=== PATIENT | female | born 1995 | race Hispanic/Latino ===

== ENCOUNTER 2019-11-09 20:53 | Inpatient (IN) | payer MEDICAID, OTHER, SELFPAY ==
[2019-11-09 21:22] VITALS: BMI 32.1
[2019-11-09] MEDS ORDERED: Ondansetron PF 4 MG/2 ML Vial IVP PRN (21:27)
[2019-11-09] MEDS ORDERED: Ibuprofen 800 MG TAB PO PRN (21:27)
[2019-11-09] MEDS ORDERED: Lidocaine 1% (PF) 30 ML VIAL SC PRN (21:27)
[2019-11-09] MEDS ORDERED: hydrALAZINE 20 MG/ML VIAL SLOW IVP PRN (21:27)
[2019-11-09] MEDS ORDERED: Promethazine HCl 25 MG/ML VIAL IM PRN (21:27)
[2019-11-09] MEDS ORDERED: Acetaminophen 500 MG TAB PO PRN (21:27)
[2019-11-09] MEDS ORDERED: Lactated Ringer's 1,000 ML IV SCH (21:30)
--- NOTE | 2019-11-09 21:31 | PDOC.FPROB ---
FMR OB H&P: HPI - History of Present Illness Chief Complaint: Contractions Indentification: 24yo @ 39.3 by 14.4wk sono History of Present Illness: 24yo @ 39.3 by 14.4wk sono presents for contractions. Onset of contractions at approx 1700, about every 5min apart and consistent. Mild vaginal spotting and thinning of vaginal discharge. No sudden LOF. Endorses good movement. No cough/congestion/fever/chills/SOB/CP, no recent travel. Primary Care Physician: MURPHY Pereira FMR OB H&P: Current - Care : 2 Para: 1001 Gestational age: 39.3 Due date: 11/13/19 Dating Criteria: 14.4wk sono - OB Labs Blood type: O RH: positive Antibody Screen: negative HIV: negative RPR: negative HepBsAg: negative Rubella: immune 1 hour gtt: 87 GBS: negative FMR OB H&P: History - Past Medical History PMH: Denies - OB History OB History: Previous term , no complications per pt. - PR[employer] MA[employer]GER [employer] History PR[employer]GER [employer] History: None, no history of STDs reported. - Surgical History Sx History: none - Social History Social History: Denies tob, illicits, or etOH. - Family History Family History: No significant OB or pediatric illnesses reported. FMR OB H&P: Medications - Current Home Medications: Medication Instructions Recorded Confirmed Type Vit,Calc78/Iron/Folic 1 tablet PO DAILY 02/15/17 11/09/19 History [Prenatabs FA Tablet] Allergies/Adverse Reactions: Allergies Allergy/AdvReac Type Severity Reaction Status Date / Time No Known Allergies Allergy Verified 02/16/17 02:29 FMR OB H&P: ROS - Review of Systems General: denies: fever/chills, weight/appetite/sleep changes Eyes: denies: vision changes ENT: denies: nasal congestion, rhinorrhea, sore throat Cardiovascular: denies: chest pain Respiratory: denies: cough, congestion, shortness of breath Gastrointestinal: denies: abdominal pain, vomiting, diarrhea Genitourinary (Female): reports: vaginal discharge, vaginal bleeding (scant), contractions (q5min). denies: incontinence, dysuria, vaginal pain Musculoskeletal: denies: pain Neurologic: denies: numbness Integumentary: denies: rash FMR OB H&P: Vital Signs - Maternal Vital signs: Vital Signs - First Documented Temp Pulse Resp BP 98.7 F 90 18 120/81 11/09/19 21:18 11/09/19 21:18 11/09/19 21:18 11/09/19 21:18 - Heart Tones Baseline: 130 Variability: moderate Acceleration: present Deceleration: absent Category: category 1 [place] contractions every: 4-5 min, regular FMR OB H&P: Physical Exam - Physical Exam General: NAD, awake, alert and oriented HEENT: normocephalic and atraumatic, PERRLA, MMM, conjunctiva clear Neck: supple Heart: RRR, normal S1/S2, no murmurs/rubs/gallops, no edema General: CTAB, no respiratory distress, good air movement, no rales/rhonchi, no wheezing Abdomen: soft, gravid, non-tender, bowel sound present Musculoskeletal: FROM in all four extremities Neurological: no focal deficit Lymphatic: no unusual bruising or bleeding Psychiatric: intact recent and remote memory, good judgement and insight, normal mood and affect - Pelvic Exam SVE: 5/100/-1 Membranes: Intact Presentation: Cephalic FMR OB H&P: A/P - Problem List (1) Term Current Visit: Yes Status: Acute Code(s): Z34.90 - ENCNTR FOR SUPRVSN OF NORMAL , UNSP, UNSP TRIMESTER Disposition: 24yo @ 39.3 by 14.4wk sono presents for contractions #Term , latent labor - 24yo @ 39.3wk by 14.4wk sono - presents for regular ctx q5min - Cat 1 strip, baseline 130, accels, no deccels, contractions q4-5 regularly - Initial SVE 5/100/-1, cephalic and intact - GBS negative - Admit to L&D, cont to monitor, recheck in ~3hrs or sooner if needed, consider AROM if no significant change at next cervical check - does not desire epidural IVF: LR @125cc/hr Diet: Ice chips PCP: MURPHY Pereira Discussion: Date/Time: 11/09/192128 This H&P was discussed with Dr. Shelton and Dr. Adame who agree with the above documentation and plan.
[2019-11-09] MEDS: Butorphanol Tartrate 1 MG/ML VIAL SLOW IVP PRN ×2 (21:51→23:38)
[2019-11-09 21:56] LABS: Hemoglobin 13.6 g/dL (12.0-16.0); Mean Corpuscular HGB CONC 34.2 g/dL (32.0-36.0); Mean Corpuscular Hemoglobin 32.3 pg (27.0-31.0); Mean Corpuscular Volume 94.4 fL (78.0-98.0); Mean Platelet Volume 8.3 fL (7.4-10.4); Platelet Count 204 thou/uL (130-400); RBC Distribution Width 12.8 % (11.5-14.5); Red Blood Cell (RBC) Count 4.22 mill/uL (4.20-5.40); White Blood Cell (WBC) Count 8.6 thou/uL (4.8-10.8)
[2019-11-09] MEDS ORDERED: Calcium Carbonate 500 MG ChewTAB PO SCH (22:00)
[2019-11-09 22:33] LABS: Syphilis Antibody Nonreactive (Nonreactive); Syphilis Antibody Index 0.03 S/CO (<1.00 Non-Reactive)
[2019-11-09 22:34] LABS: HBSAg Index 0.18 S/CO (0-0.99); Hep B Surf Ag Non-Reactive S/CO (NonReactive)
--- NOTE | 2019-11-09 23:56 | PDOC.LDPN ---
Labor & Delivery Progress Note - Subjective Subjective: comfortable, painful contractions, no concerns - Objective Vital signs reviewed and normal: yes General: NAD, breathing through contractions Uterine fundus: non tender SVE: 6/100/-1 FHT: category 1 (accels, no deccels, baseline 130) [place] contractions every: q4min - Assessment (1) Term Code(s): Z34.90 - ENCNTR FOR SUPRVSN OF NORMAL , UNSP, UNSP TRIMESTER Current Visit: Yes Status: Acute Plan: continue plan of care -: 24yo @ 39.3 by 14.4wk sono admitted for contractions now in active labor #Term , active labor - 24yo @ 39.3wk by 14.4wk sono - Cat 1 strip, baseline 130, accels, no deccels, contractions q4min regularly - Initial SVE 5/100/-1, cephalic and intact - SVE @ 2330 6/100/-1 - GBS negative - does not desire epidural - cont current management, recheck in ~2hrs, consider AROM at that time IVF: LR @125cc/hr Diet: Ice chips PCP: MURPHY Pereira
[2019-11-10] MEDS: NS / Oxytocin 40 units/1000ml 1,000 ML IV PRN ×2 (01:51→02:22)
--- NOTE | 2019-11-10 02:22 | PDOC.OPDEL ---
OB Operative/Delivery Note Delivery Dr/Surgeon: Rosina/Deep Pre-Delivery Diagnosis: active labor, ruptured membrane Weeks gestation: 39 (39.4) Anesthesia: none - Findings A Sex: male - 1 min: 9 - 5 min: 9 - Additional Findings/Plan Placenta delivered: spontaneous Repaired Obstetrical Laceration: 1st degree (perineal/R-side wall hemostatic, not requiring repair) Estimated blood loss: 25 Compilations/Other Findings: Delivering Physician: Rosina Attending: Deep Procedure: Spontaneous Vaginal Delivery Anesthesia: None QBL: 25 ml Pre-op Diagnosis: 1. Term intrauterine in labor Post-op Diagnosis: 1. Term intrauterine , delivered Indications: A 24y/o female presents in active labor Delivery Note: This is 24yo F @ 39.4wks who delivered a viable M infant at 0131. Following an uneventful antepartum course and SROM at 0037, a vigorous male was delivered over an intact perineum in the occipitoanterior position. Anterior Shoulder and then remainder of the body delivered. Nuchal cord x2. The head was held down and mouth and nares were bulb suctioned. Cord clamped after delayed cord clamping and cut and cord blood collected. Placenta delivered intact in the Sales presentation with a 3 vessel cord noted. Fundal massage was performed and the fundus was firm. The cervix and vagina were inspected and a small 1st degree perineum/R side wall laceration noted that was hemostatic and not requiring repair. placed on mother for [id number] and then nursery for routine care. Apgars were 9/9 at 1 & 5 minutes, respectively. Patient tolerated delivery well and went to after routine recovery/care. Post delivery plan: routine recovery Addendum - Attending - Attending Attestation Date/Time: 11/10/19 [id number] I personally evaluated the patient and discussed the management with Dr. Lee I agree with the History, Examination, Assessment and Plan documented above with any addition or exceptions noted below. I was present for the second and third stages of labor supervising/teaching Dr Lee.
[2019-11-10] MEDS ORDERED: hydrALAZINE 20 MG/ML VIAL SLOW IVP PRN (03:13)
[2019-11-10] MEDS ORDERED: Milk Of Magnesia 30 ML UDCUP PO PRN (03:13)
[2019-11-10] MEDS ORDERED: Ondansetron PF 4 MG/2 ML Vial IVP PRN (03:13)
[2019-11-10] MEDS ORDERED: Preparation H Ointment 28 GM TUBE PR PRN (03:13)
[2019-11-10] MEDS ORDERED: Lanolin Ointment 7 GM TUBE TOP PRN (03:13)
[2019-11-10] MEDS ORDERED: Bisacodyl 10 MG SUPP PR PRN (03:13)
[2019-11-10] MEDS ORDERED: NS / Oxytocin 40 units/1000ml 1,000 ML IV SCH (03:13)
[2019-11-10] MEDS ORDERED: Benzocaine-Menthol 82.5 ML CAN TOP PRN (03:13)
[2019-11-10] MEDS ORDERED: Calcium Carbonate 500 MG ChewTAB PO PRN (04:26)
[2019-11-10] MEDS: Ibuprofen 800 MG TAB PO SCH ×3 (05:46→22:05)
[2019-11-10] MEDS: Prenatal Vitamin 1 TAB PO SCH (08:29)
[2019-11-10 08:52] LABS: Hemoglobin 12.6 g/dL (12.0-16.0); Mean Corpuscular HGB CONC 34.5 g/dL (32.0-36.0); Mean Corpuscular Hemoglobin 32.6 pg (27.0-31.0); Mean Corpuscular Volume 94.3 fL (78.0-98.0); Mean Platelet Volume 7.6 fL (7.4-10.4); Platelet Count 185 thou/uL (130-400); RBC Distribution Width 12.6 % (11.5-14.5); Red Blood Cell (RBC) Count 3.88 mill/uL (4.20-5.40); White Blood Cell (WBC) Count 12.4 thou/uL (4.8-10.8)
[2019-11-10] MEDS ORDERED: Adacel (T-DAP) 0.5 ML SYRINGE IM ONE (09:00)
[2019-11-10] MEDS: traMADol HCl 50 MG TAB PO PRN (17:28)
[2019-11-11] MEDS: Ibuprofen 800 MG TAB PO SCH ×2 (05:30→13:49)
--- NOTE | 2019-11-11 07:01 | PDOC.PP ---
Post Progress Note Post Day #: 1 PO intake tolerated: yes Flatus: no Ambulation: yes Vital Signs (12 hours) Temp Pulse Resp BP Pulse Ox 11/11/19 00:00 99.0 F 76 16 103/58 L 11/10/19 20:05 98.5 F 79 15 100/52 L 96 Weight Weight 77.111 kg - Physical Examination General: NAD Cardiovascular: no m/r/g, RRR Respiratory: clear to auscultation bilaterally Abdominal: + bowel sounds, lochia, appropriately TTP Extremities: negative homans (B) Skin: no rash Neurological: no gross focal deficits Psychiatric: A&Ox3, normal affect Result Diagrams: 11/10/19 08:44 Additional Labs: Post Labs Blood Type O POSITIVE 11/09/19 21:40 Hep Bs Antigen Non-Reactive S/CO (NonReactive) 11/09/19 21:40 (1) Term delivered Code(s): O80 - ENCOUNTER FOR FULL-TERM UNCOMPLICATED DELIVERY Status: Acute Comment: - with vacuum assist at 0616 02/16/17 2nd degree perineal lac secondary to episiotomy repaired. EBL 300. Is doing fine this morning. Denies any problems, is up and moving around. Says she is having some vaginal pain. Being controlled with medication. Breast feeding is going much better today. Ready to go home. - Assessment/Plan 24yo @ 39.3 by 14.4wk rachana admitted for contractions now in active labor 1. Term , active labor PPD#1 * QBL: 45 * 1st degree lac * Eating and ambulating well * Some abdominal cramping, will send with ibuprofen * No BM, will send stool softner * H&H: 12.6/36.6 IVF: LR @125cc/hr Diet: Ice chips PCP: MURPHY Pereira Dispo: Will d/c today.
[2019-11-11 08:38] VITALS: BP 101/55; TEMP 98.1
[2019-11-11] MEDS: Prenatal Vitamin 1 TAB PO SCH (09:17)
[2019-11-11] MEDS: traMADol HCl 50 MG TAB PO PRN (09:18)
== END 2019-11-11 17:10 | disposition home or self-care (01) | DRG 807 ==
LOC: L&D/OP 20:53 → L&D 21:21 → 3SW 11-10 04:00
PROVIDERS: ADMIT Obstetrics & Gynecology; ATTEND Obstetrics & Gynecology
PROC: 10E0XZZ Delivery of Products of Conception, External Approach (ICD-10-PCS; principal; 2019-11-10)
DX: O70.0 First degree perineal laceration during delivery (principal); Z37.0 Single live birth; O69.81X0 Labor and delivery complicated by cord around neck, without compression, not applicable or unspecified; Z3A.39 39 weeks gestation of pregnancy
CPT/HCPCS: 36415; 85027; 86780; 86850; 86900; 86901; 87340; 99285; J0595